=== PATIENT | female | born 1965 | race Caucasian/White ===

== ENCOUNTER 2021-03-05 14:11 | Outpatient (REF) | payer BC, SELFPAY | END 2021-03-05 14:12 | disposition home or self-care (01) | LOC: HO.LNP 14:11 | PROVIDERS: Visit Provider Family Medicine | DX: N39.0 Urinary tract infection, site not specified (principal); R30.0 Dysuria | CPT/HCPCS: 87086 ==

== ENCOUNTER 2021-07-22 17:23 | Outpatient (REF) | payer BC, SELFPAY | END 2021-07-22 17:24 | disposition home or self-care (01) | LOC: HO.LNP 17:23 | PROVIDERS: Visit Provider Hospitalist | DX: R30.0 Dysuria (principal); N39.0 Urinary tract infection, site not specified | CPT/HCPCS: 87086; 87088; 87186 ==

== ENCOUNTER 2021-08-25 15:08 | Outpatient (REF) | payer BC, SELFPAY | END 2021-08-25 15:09 | disposition home or self-care (01) | LOC: HO.LNP 15:08 | PROVIDERS: Visit Provider Hospitalist | DX: R30.0 Dysuria (principal) | CPT/HCPCS: 87086 ==